=== PATIENT | male | born 1985 | race Caucasian/White ===

== ENCOUNTER 2019-12-13 10:15 | Emergency (ER) | payer OTHER, BC ==
[~2019-12-13] VITALS: Ht 180.3 cm; Wt 81.8 kg
[2019-12-13 13:10] VITALS: BP 140/88
== END 2019-12-13 13:05 | disposition home or self-care (01) ==
LOC: ER 10:16
DX: M24.541 Contracture, right hand (principal)
CPT/HCPCS: 73140; 99283